=== PATIENT | female | born 1980 | race Caucasian/White ===

== ENCOUNTER 2016-12-19 18:21 | Emergency (ER) | payer OTHER ==
[2016-12-19 18:30] VITALS: BP 145/71; PULSE 109; TEMP 100.8; BMI 24.0
[2016-12-19] MEDS ORDERED: IBUPROFEN 600 MG TABLET (FP) PO ONE ×2 (18:48→18:53)
--- NOTE | 2016-12-19 18:51 | PDOC ---
History of Present Illness - General Chief Complaint: Ear Problem Stated Complaint: EAR PAIN Time Seen by Provider: 12/19/16 18:31 History Source: Patient - History of Present Illness Initial Comments: 12/19/16 18:49 36 yr female no medical history with c/o sore throat fever ear pain for 4 days. Pt's sister with same symptoms, other household contacts with same. no nvd no abd pain or chills. pt took tylenol today. Severity: mild Past History - Past Medical History Allergies/Adverse Reactions: Allergies Allergy/AdvReac Type Severity Reaction Status Date / Time No Known Allergies Allergy Verified 12/19/16 18:30 Home Medications: Ambulatory Orders Ibuprofen 600 mg PO QID PRN #30 tablet 12/19/16 Other medical history: NONE - Psycho/Social/Smoking Cessation Hx Anxiety: No Suicidal Ideation: No Smoking History: Never smoked Hx Alcohol Use: No Drug/Substance Use Hx: No Substance Use Type: None Review of Systems - Review of Systems Able to Perform ROS?: Yes Is the patient limited Slovenian proficient: No Constitutional: Yes: See HPI HEENTM: Yes: See HPI *Physical Exam - Vital Signs Last Vital Signs Temp Pulse Resp BP Pulse Ox 100.8 F H 109 H 20 145/71 97 12/19/16 18:28 12/19/16 18:28 12/19/16 18:28 12/19/16 18:28 12/19/16 18:28 - Physical Exam General Appearance: Yes: Nourished, Appropriately Dressed HEENT: positive: EOMI, ASUNCION, TMs Normal, Pharyngeal Erythema Neck: positive: Supple. negative: Lymphadenopathy (R), Lymphadenopathy (L) Respiratory/Chest: positive: Lungs Clear, Normal Breath Sounds Cardiovascular: positive: Regular Rhythm, Regular Rate Gastrointestinal/Abdominal: positive: Normal Bowel Sounds, Soft Musculoskeletal: positive: Normal Inspection Extremity: positive: Normal Capillary Refill, Normal Inspection, Normal Range of Motion Integumentary: positive: Normal Color, Dry, Warm Neurologic: positive: Fully Oriented, Alert, Normal Mood/Affect, Normal Response , Motor Strength 5/5 Medical Decision Making - Medical Decision Making 12/19/16 18:50 cc: fever, nasal congestion, sore throat ear pain sick contacts at home neg nvd LMP 2 weeks ago will check for strep ibuprofen for pain and fever most likely viral flu like syndrome *DC/Admit/Observation/Transfer Diagnosis at time of Disposition: Flu-like symptoms Pharyngitis Qualifiers: Pharyngitis/tonsillitis etiology: unspecified etiology Qualified Code(s): J02.9 - Acute pharyngitis, unspecified - Discharge Dispostion Disposition: HOME Condition at time of disposition: Good - Prescriptions Prescriptions: Ibuprofen 600 mg PO QID PRN #30 tablet PRN Reason: Fever Or Pain - Referrals Referrals: [facility], [place] (Dorys Salgado) [Outside] - Patient Instructions Additional Instructions: Drink at least 2-3 liters of water a day take ibuprofen 600mg every 6hrs for fever or pain as directed get pleanty of rest wash hands frequently sore throat lozengers of your choice can help with sore throat tea with honey and lemon follow up at the [facility] this week if any worsening symptoms Return to ER if worse
== END 2016-12-19 19:08 | disposition home or self-care (01) ==
LOC: JERFT 18:21
DX: J11.1 Influenza due to unidentified influenza virus with other respiratory manifestations (principal)
CPT/HCPCS: 87070; 87430; 99281-25

== ENCOUNTER 2018-02-18 18:19 | Emergency (ER) | payer OTHER ==
[2018-02-18 18:22] VITALS: BP 133/68; PULSE 79; TEMP 98.6; BMI 27.1
--- NOTE | 2018-02-18 18:40 | PDOC ---
History of Present Illness - General Chief Complaint: Eye Problem Stated Complaint: PAIN Time Seen by Provider: 02/18/18 18:24 History Source: Patient Exam Limitations: No Limitations - History of Present Illness Initial Comments: CHIEF COMPLAINT: 37 y/o afebrile female with no significant PMH c/o painful bump to her left lower eye x 3 days. HISTORY OF PRESENT ILLNESS: THe patient denies f/c, n/v/d, trauma to eye, contact lens use and all other symptoms. Past History - Past Medical History Allergies/Adverse Reactions: Allergies Allergy/AdvReac Type Severity Reaction Status Date / Time No Known Allergies Allergy Verified 02/18/18 18:22 Home Medications: Ambulatory Orders Ibuprofen 600 mg PO QID PRN #30 tablet 12/19/16 COPD: No - Suicide/Smoking/Psychosocial Hx Smoking History: Never smoked Hx Alcohol Use: No Drug/Substance Use Hx: No Substance Use Type: None Review of Systems - Review of Systems Able to Perform ROS?: Yes Constitutional: No: Chills, Fever HEENTM: Yes: Eye Pain. No: Double Vision, Ear Pain, Ear Discharge, Nose Pain, Throat Pain *Physical Exam - Vital Signs Last Vital Signs Temp Pulse Resp BP Pulse Ox 98.6 F 79 18 133/68 99 02/18/18 18:20 02/18/18 18:20 02/18/18 18:20 02/18/18 18:20 02/18/18 18:20 - Physical Exam Comments: Well appearing, ambulatory female in NAD or obvious discomfort. General Appearance: Yes: Nourished, Appropriately Dressed. No: Apparent Distress HEENT: positive: EOMI, ASUNCION, Orbits (without edema), Other (internal and external hordeolum of left lower lateral eyelid). negative: Scleral Icterus (R) , Scleral Icterus (L), Sinus Tenderness Medical Decision Making - Medical Decision Making A/P: 37 y/o female with left lower lateral hordeolum. Instructed patient to apply warm compresses 3 times per day and that hordeolum will most likely go away on its own. Suggested she call rn transfer, Dr. Srivastava, in 1 week if no improvement in symptoms. THe patient verbalizes understanding of all instructions, has no further questions and is awaiting discharge. *DC/Admit/Observation/Transfer Diagnosis at time of Disposition: Hordeolum internum of left lower eyelid - Discharge Dispostion Disposition: HOME Condition at time of disposition: Good - Referrals Referrals: Barbra Srivastava MD [Staff Physician] - 1 week () - Patient Instructions Printed Discharge Instructions: DI for Hordeolum Additional Instructions: Discharge Instructions: -You have a hordeolum; this will go away on its own but may take a few weeks -Apply warm wash cloths to the area 3 times a day -Call Dr. Srivastava in 1 week to make an appointment if you have no improvement in symptoms Instrucciones de descarga: -Tienes un hordeolum; esto desaparecer por s solo, di puede nico algunas semanas -Aplicar trapos calientes al emmett [address] [place] al [address] Srivastava en 1 semana para hacer domingo carey si no mejora los sntomas - Post Discharge Activity
== END 2018-02-18 18:52 | disposition home or self-care (01) ==
LOC: JERFT 18:19
DX: H00.025 Hordeolum internum left lower eyelid (principal)
CPT/HCPCS: 99281-25

== ENCOUNTER 2019-01-01 19:30 | Emergency (ER) | payer OTHER ==
[2019-01-01 19:40] VITALS: BP 127/61; PULSE 77; TEMP 97.9; BMI 25.7
--- NOTE | 2019-01-01 19:42 | PDOC ---
Rapid Medical Evaluation Chief Complaint: Eye Problem Time Seen by Provider: 01/01/19 19:39 Medical Evaluation: Allergies Allergy/AdvReac Type Severity Reaction Status Date / Time No Known Allergies Allergy Verified 01/01/19 19:38 01/01/19 19:39 I have performed a brief in-person evaluation of this patient. The patient presents with a chief complaint of: Sty to right upper eyelid x 2 weeks with redness in right eye. Denies blurry vision or change in vision Pertinent physical exam findings: 1cm external hordeolum to medial aspect of right upper eyelid. mild right conjunctiva erythema I have ordered the following: nothing The patient will proceed to the ED for further evaluation. Discharge Disposition - Diagnosis Hordeolum externum right eye, unspecified eyelid Qualifiers: Eyelid: upper Qualified Code(s): H00.011 - Hordeolum externum right upper eyelid - Discharge Dispostion Condition at time of disposition: Stable - Referrals - Patient Instructions - Post Discharge Activity
--- NOTE | 2019-01-01 21:17 | PDOC ---
History of Present Illness - General Chief Complaint: Eye Problem Stated Complaint: EYE PROBLEM Time Seen by Provider: 01/01/19 19:39 History Source: Patient Exam Limitations: Clinical Condition - History of Present Illness Initial Comments: 01/01/19 21:11 Patient with no significant past medical history present with stye to right upper eyelid and redness in right eye since yesterday. Denies blurry vision or change in vision. Denies any other symptoms Timing/Duration: 24 hours Past History - Past Medical History Allergies/Adverse Reactions: Allergies Allergy/AdvReac Type Severity Reaction Status Date / Time No Known Allergies Allergy Verified 01/01/19 19:38 Home Medications: Ambulatory Orders Erythromycin 0.5% Eye Ointment [Erythromycin 0.5% Eye Ointment -] 1 applic TP BID 5 Days #1 tube 01/01/19 Ofloxacin 0.3% Ophth Soln [Ocuflox -] 2 drop OD Q4H 5 Days #1 bottle 01/01/19 COPD: No - Suicide/Smoking/Psychosocial Hx Smoking History: Never smoked Hx Alcohol Use: No Drug/Substance Use Hx: No Substance Use Type: None Review of Systems - Review of Systems Able to Perform ROS?: Yes Is the patient limited Estonian proficient: No Constitutional: No: Chills, Fever HEENTM: Yes: Symptoms Reported, See HPI, Eye Pain (right eye). No: Blurred Vision, Tearing, Recent change in vision, Double Vision, Cataracts, Ear Pain, Ocular Prothesis, Ear Discharge, Nose Pain, Nose Congestion, Tinnitus, Nose Bleeding, Hearing Loss, Throat Pain, Throat Swelling, Mouth Pain, Dental Problems, Difficulty Swallowing, Mouth Swelling, Other Respiratory: No: Symptoms reported, See HPI, Cough, Orthopnea, Shortness of Breath, SOB with Exertion, SOB at Rest, Stridor, Wheezing, Productive cough, Hemoptysis, Other Cardiac (ROS): No: Symptoms Reported, See HPI, Chest Pain, Edema, Irregular Heart Rate, Lightheadedness, Palpitations, Syncope, Chest Tightness, Other ABD/GI: No: Nausea, Vomiting Neurological: No: Headache All Other Systems: Reviewed and Negative *Physical Exam - Vital Signs Last Vital Signs Temp Pulse Resp BP Pulse Ox 97.9 F 77 18 127/61 100 01/01/19 19:39 01/01/19 19:39 01/01/19 19:39 01/01/19 19:39 01/01/19 19:39 - Physical Exam Comments: 01/01/19 21:17 GENERAL: Well developed, well nourished. Awake and alert. No acute distress. HEENT: 1cm external hordeolum of right upper eyelid. mild right conjunctiva erythema. no eye duischajrge. Normocephalic, atraumatic. PERRLA, EOMI. No left conjunctival pallor. Sclera are non-icteric. Moist mucous membranes. Oropharynx is clear. NECK: Supple. Full ROM. CARDIOVASCULAR: Regular rate and rhythm. No murmurs, rubs, or gallops. Distal pulses are 2+ and symmetric. PULMONARY: No evidence of respiratory distress. Lungs clear to auscultation bilaterally. No wheezing, rales or rhonchi. ABDOMINAL: Soft. Non-tender. Non-distended. No rebound or guarding. No organomegaly. Normoactive bowel sounds. MUSCULOSKELETAL Normal range of motion at all joints. SKIN: Warm and dry. Normal capillary refill. No rashes. No jaundice. NEUROLOGICAL: Alert, awake, appropriate. Gait is normal without ataxia. PSYCHIATRIC: Cooperative. Good eye contact. Appropriate mood General Appearance: Yes: Nourished, Appropriately Dressed. No: Mild Distress Medical Decision Making - Medical Decision Making 01/01/19 21:12 Patient with no significant past medical history present with stye to right upper eyelid and redness in right eye since yesterday. Denies blurry vision or change in vision. Denies any other symptoms Exam significant for 1 cm external hordeolum to right upper eyelid with mild right conjunctival erythema. Extraocular muscle intact. Pupil equal and refracted to light bilateral. Patient is stable for outpatient management with topical erythromycin to eyelid and ofloxacin eyedrop for conjunctivitis with advised to do hot compresses and ophthalmology follow-up *DC/Admit/Observation/Transfer Diagnosis at time of Disposition: Hordeolum externum right eye, unspecified eyelid Qualifiers: Eyelid: upper Qualified Code(s): H00.011 - Hordeolum externum right upper eyelid Conjunctivitis Qualifiers: Conjunctivitis type: acute Acute conjunctivitis type: unspecified Laterality: right Qualified Code(s): H10.31 - Unspecified acute conjunctivitis, right eye - Discharge Dispostion Disposition: HOME Condition at time of disposition: Stable Decision to Admit order: No - Prescriptions Prescriptions: Erythromycin 0.5% Eye Ointment [Erythromycin 0.5% Eye Ointment -] 1 applic TP BID 5 Days #1 tube Ofloxacin 0.3% Ophth Soln [Ocuflox -] 2 drop OD Q4H 5 Days #1 bottle - Referrals Referrals: Shaquille Ramires MD [Staff Physician] - - Patient Instructions Printed Discharge Instructions: DI for Hordeolum Additional Instructions: use medications as prescribed. Follow-up with referred operations technician if no improvement in 4 days - Post Discharge Activity
== END 2019-01-01 21:24 | disposition home or self-care (01) ==
LOC: JERFT 19:30
DX: H00.011 Hordeolum externum right upper eyelid (principal)
CPT/HCPCS: 99281-25

== ENCOUNTER → 2023-07-14 | Day surgery (SDC) | payer OTHER | END | disposition home or self-care (01) | LOC: FMAMMOTONE 10:27 | PROVIDERS: ATTEND Physician Assistant | PROC: 0HBV3ZX Excision of Bilateral Breast, Percutaneous Approach, Diagnostic (ICD-10-PCS; principal; 2023-07-14) | DX: N60.21 Fibroadenosis of right breast (principal); N60.22 Fibroadenosis of left breast; N64.89 Other specified disorders of breast; R92.0 Mammographic microcalcification found on diagnostic imaging of breast | CPT/HCPCS: 19081; 76098-TC-FY; 87899; 88305-TC; 88341-TC; 88342-TC; A4648 ==

== ENCOUNTER 2023-10-15 08:53 | Emergency (ER) | payer OTHER ==
[2023-10-15 09:10] VITALS: BP 120/76; PULSE 71; RESP 16; TEMP 98.4; BMI 28.8
[2023-10-15 12:16] LABS: BASO % 0.5 % (0-2.0); EOS % 0.4 % (0-4.5); HEMATOCRIT 38.6 % (32.4-45.2); HEMOGLOBIN 13.3 GM/dL (10.7-15.3); MCH 30.9 pg (25.7-33.7); MCHC 34.5 g/dl (32.0-36.0); MEAN CELL VOLUME 89.6 fl (80-96); MEAN PLT VOLUME 7.7 fl (7.5-11.1); MONO % 3.9 % (3.8-10.2); NEUT % 67.2 % (42.8-82.8); PLATELET COUNT 438 10^3/uL (134-434); RBC 4.31 M/mm3 (3.60-5.2); RDW 14.2 % (11.6-15.6); WHITE BLOOD COUNT 9.7 K/mm3 (4.0-10.0)
[2023-10-15 12:20] LABS: EPI CELLS >36 /uL (0-25.1); HYALINE CASTS 3 /uL (0-3.1); URINE APPEARANCE TURBID; URINE BACTERIA 5587 /uL (0-1359); URINE BILIRUBIN NEGATIVE (NEGATIVE); URINE COLOR YELLOW; URINE GLUCOSE (UA) NEGATIVE (NEGATIVE); URINE KETONE NEGATIVE (NEGATIVE); URINE LEUK ESTERASE TRACE (NEGATIVE); URINE NITRITE NEGATIVE (NEGATIVE); URINE PROTEIN TRACE (NEGATIVE); URINE UROBILINOGEN 0.2 mg/dL (0.2-1.0); URINE WBC 236 /uL (0-25.8)
[2023-10-15 13:04] LABS: URINE RBC 223 /uL (0-23.9); YEAST NONE SEEN (NEGATIVE)
[2023-10-15] MEDS ORDERED: CEPHALEXIN MONOHYDRATE 500 MG CAPSULE (UD) ONE (14:27)
[2023-10-15] MEDS: CEPHALEXIN MONOHYDRATE 500 MG CAPSULE (UD) PO ONE (14:30)
== END 2023-10-15 17:05 | disposition home or self-care (01) ==
LOC: JER 08:53
DX: O20.9 Hemorrhage in early pregnancy, unspecified (principal); O26.891 Other specified pregnancy related conditions, first trimester; R10.30 Lower abdominal pain, unspecified; Z3A.08 8 weeks gestation of pregnancy
CPT/HCPCS: 36415; 76817-TC; 81003; 84702; 85025; 86850; 86900; 86901; 87086; 87186; 99284-25